=== PATIENT | male | born 2000 | race Caucasian/White ===

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

== ENCOUNTER → 2021-01-17 | Outpatient (CLI) | payer BC ==
[2021-01-17 23:13] LABS: Basophils # (A) 0.03 X 10*3/uL (0.00-0.10); Basophils % (A) 0.5 %; Eosinophils # (A) 0.43 X 10*3/uL (0.04-0.35); Eosinophils % (A) 7.1 %; HCT 41.3 % (39.6-50.0); HGB 13.6 g/dL (13.0-17.0); Lymphocytes # (A) 1.46 X 10*3/uL (0.90-5.00); MCH 30.1 pg (27.0-32.0); MCHC 32.9 g/dL (32.0-37.0); MCV 91.4 fL (80.0-97.0); Mean Platelet Volume 12.6 fL (9.5-12.2); Monocytes # (A) 0.37 X 10*3/uL (0.20-1.00); Monocytes % (A) 6.1 %; Neutrophils # (A) 3.79 X 10*3/uL (1.80-7.70); Neutrophils % (A) 62.1 %; Platelet Count 239 X 10*3/uL (140-440); RBC 4.52 X 10*6/uL (4.40-5.60); RDW 15.7 % (11.5-14.5); WBC 6.09 X 10*3/uL (4.50-10.00)
[2021-01-18 02:43] LABS: Erythrocyte Sedimentation Rate 5 mm/Hr (0-15)
[2021-01-18 03:22] LABS: ALT 14 U/L (10-49); AST 23 U/L (14-35); African American GFR (CKD) 150.1 (60.0-200.0); Albumin/Globulin Ratio 2.18 (1.60-3.17); Alkaline Phosphatase 63 U/L (41-126); C Reactive Protein <0.4 mg/dL (0.0-0.8); Calcium 9.8 mg/dL (8.7-10.3); Carbon Dioxide 27.2 mmol/L (21.6-31.8); Chloride 106 mmol/L (96-109); Globulin 2.2 g/dL (1.6-3.3); Glucose 72 mg/dL (70-110); Non-African American GFR(CKD) 129.5 (60.0-200.0); Potassium 3.7 mmol/L (3.5-5.5); Sodium 142 mmol/L (135-145); Total Bilirubin 0.4 mg/dL (0.3-1.2)
== END | disposition home or self-care (01) ==
LOC: LABWHC1 16:07
PROVIDERS: ATTEND Internal Medicine Gastroenterology
DX: K51.90 Ulcerative colitis, unspecified, without complications (principal)
CPT/HCPCS: 36415; 80053; 80145; 82397; 85025; 85652; 86140

== ENCOUNTER → 2021-03-28 | Outpatient (CLI) | payer BC ==
[2021-03-29 10:11] LABS: Basophils # (A) 0.03 X 10*3/uL (0.00-0.10); Basophils % (A) 0.6 %; Eosinophils # (A) 0.46 X 10*3/uL (0.04-0.35); Eosinophils % (A) 8.7 %; HCT 38.5 % (39.6-50.0); Lymphocytes # (A) 0.97 X 10*3/uL (0.90-5.00); Lymphocytes % (A) 18.4 %; MCH 32.8 pg (27.0-32.0); MCHC 33.8 g/dL (32.0-37.0); MCV 97.2 fL (80.0-97.0); Mean Platelet Volume 11.7 fL (9.5-12.2); Monocytes # (A) 0.45 X 10*3/uL (0.20-1.00); Monocytes % (A) 8.6 %; Neutrophils # (A) 3.34 X 10*3/uL (1.80-7.70); Neutrophils % (A) 63.5 %; Platelet Count 223 X 10*3/uL (140-440); RBC 3.96 X 10*6/uL (4.40-5.60); RDW 13.9 % (11.5-14.5); WBC 5.26 X 10*3/uL (4.50-10.00)
[2021-03-29 14:58] LABS: Erythrocyte Sedimentation Rate 10 mm/Hr (0-15)
[2021-03-29 19:33] LABS: African American GFR (CKD) 158.6 (60.0-200.0); Albumin 4.5 g/dL (3.80-4.90); Albumin/Globulin Ratio 1.8 (1.60-3.17); BUN/Creat Ratio 17.14 Ratio (12.00-20.00); C Reactive Protein 0.5 mg/dL (0.0-0.8); Calcium 9.4 mg/dL (8.7-10.3); Globulin 2.5 g/dL (1.6-3.3); Non-African American GFR(CKD) 136.8 (60.0-200.0); Potassium 4.4 mmol/L (3.5-5.5); Total Bilirubin 0.4 mg/dL (0.2-1.2)
== END | disposition home or self-care (01) ==
LOC: LABWHC1 15:40
PROVIDERS: ATTEND Internal Medicine Gastroenterology
DX: K51.90 Ulcerative colitis, unspecified, without complications (principal)
CPT/HCPCS: 36415; 80053; 85025; 85652; 86140

== ENCOUNTER → 2021-07-27 | Outpatient (CLI) | payer BC ==
[2021-07-27 23:22] LABS: Basophils # (A) 0.03 X 10*3/uL (0.00-0.10); Basophils % (A) 0.5 %; Eosinophils % (A) 6.1 %; HCT 39.4 % (39.6-50.0); HGB 13.3 g/dL (13.0-17.0); Lymphocytes # (A) 1.22 X 10*3/uL (0.90-5.00); Lymphocytes % (A) 18.5 %; MCH 32.3 pg (27.0-32.0); MCHC 33.8 g/dL (32.0-37.0); MCV 95.6 fL (80.0-97.0); Mean Platelet Volume 11.3 fL (9.5-12.2); Monocytes # (A) 0.46 X 10*3/uL (0.20-1.00); Neutrophils # (A) 4.46 X 10*3/uL (1.80-7.70); Neutrophils % (A) 67.6 %; Platelet Count 223 X 10*3/uL (140-440); RBC 4.12 X 10*6/uL (4.40-5.60); RDW 13.8 % (11.5-14.5); WBC 6.59 X 10*3/uL (4.50-10.00)
[2021-07-28 00:31] LABS: Erythrocyte Sedimentation Rate 6 mm/Hr (0-15)
[2021-07-28 16:06] LABS: ALT 14 U/L (10-49); AST 28 U/L (14-35); Albumin/Globulin Ratio 1.73 (1.60-3.17); Alkaline Phosphatase 60 U/L (41-126); BUN/Creat Ratio 13.75 Ratio (12.00-20.00); C Reactive Protein <0.4 mg/dL (0.0-0.8); Calcium 9.6 mg/dL (8.7-10.3); Carbon Dioxide 25.1 mmol/L (21.6-31.8); Chloride 106 mmol/L (96-109); Globulin 2.6 g/dL (1.6-3.3); Glucose 86 mg/dL (70-110); Non-African American GFR(CKD) 128.6 (60.0-200.0); Potassium 4.2 mmol/L (3.5-5.5); Sodium 142 mmol/L (135-145); Total Bilirubin 0.5 mg/dL (0.2-1.2); Total Protein 7.1 g/dL (6.2-8.2)
== END | disposition home or self-care (01) ==
LOC: LABWHC1 16:27
PROVIDERS: ATTEND Internal Medicine Gastroenterology
DX: K51.90 Ulcerative colitis, unspecified, without complications (principal)
CPT/HCPCS: 36415; 80053; 83993; 85025; 85652; 86140

== ENCOUNTER 2021-08-12 11:20 | Day surgery (SDC) | payer BC ==
[2021-08-10 12:04] VITALS: BMI 17.2
[~2021-08-12 11:20] MED LIST changes: -LIDOCAINE 1% 20 ML VIAL (10MG/ML) FOR IV START INTRADERMA PRN
[2021-08-12 11:57] VITALS: RESP 16; TEMP 98.2
[2021-08-12] MEDS ORDERED: LIDOCAINE 1% (10MG/ML) FOR IV START INTRADERMA ONE (12:02)
[2021-08-12] MEDS ORDERED: LIDOCAINE 1% INJ 10MG/ML (20 ML MDV) ONE (13:38)
[2021-08-12] MEDS ORDERED: PROPOFOL 10 MG/ML 20 ML VIAL IV ONE (13:38)
--- NOTE | 2021-08-12 14:00 | P.PCN ---
Date of Procedure: 08/12/21 Procedure(s) Performed: BRIEF HISTORY: Patient is a 21-year-old pleasant 8 male scheduled for an elective colonoscopy as a part of scheduled for colonoscopy.as a part of evaluation of ulcerative colitis that was diagnosed 2 years ago. He had a colonoscopy in August 2019 and was noted to have active proctosigmoiditis biopsy was consistent with inflammatory bowel disease, likely ulcerative colitis. The patient since has been maintained on oral mesalamine and the Humira injections for 1 year with no improvement in his symptoms. He was recently started on Imuran 100 mg daily as well as interview infusions every 8 weeks. Despite this he continues to remain symptomatic with 6-8 soft bowel movements daily with some any blood or mucus in the stool. He is scheduled for a colonoscopy to assess the degree and severity of inflammatory bowel disease. PROCEDURE PERFORMED: Colonoscopy with biopsy. PREOPERATIVE DIAGNOSIS: History of ulcerative colitis diagnosed in August 2019, continues to have persistent symptoms with diarrhea and bleeding. IV sedation per Anesthesia. PROCEDURE: After informed consent was obtained, the patient, was brought into the endoscopy unit. IV sedation was administered by Anesthesia under continuous monitoring. Digital rectal examination was normal. Initially the Olympus CF-160 flexible video colonoscope was then inserted in the rectum, gradually advanced into the cecum without any difficulty. Careful examination was performed as the scope was gradually being withdrawn. Ileocecal valve and the appendiceal orifice were visualized and appeared normal. Prep was excellent. Terminal ileum was intubated and 20 cm resected appeared normal. Mucosa of the cecum, ascending colon, transverse colon, descending colon, appeared entirely normal. There was mild erythema and edema with loss of haustrations , scattered pseudopolyps in the rectum and the sigmoid colon up to 30 cm from the anal verge consistent with mildly active colitis. Retroflexion was performed in the rectum and no lesions were seen. The patient tolerated the procedure well. IMPRESSION: Mildly active proctosigmoiditis with mucosal erythema, scattered pseudopolyps, loss of haustrations involving the rectum and distal sigmoid colon up to 30 cm from the anal verge consistent with inflammatory bowel disease/ulcerative colitis Rest of the colon and terminal ileum appeared normal RECOMMENDATIONS: Findings of this examination were discussed with the patient as well as his family. He was advised to follow with the biopsy results and he'll be seen in office in 2 weeks. In the meantime he will continue with antibiotic infusions as well as Imuran 100 mg daily.
[2021-08-12 14:20] VITALS: BP 112/69; PULSE 89
== END 2021-08-12 14:45 | disposition home or self-care (01) ==
LOC: ORWHC2ENDO 11:20
PROVIDERS: ATTEND Internal Medicine Gastroenterology
DX: K51.90 Ulcerative colitis, unspecified, without complications (principal); K63.89 Other specified diseases of intestine; K21.9 Gastro-esophageal reflux disease without esophagitis; Z79.899 Other long term (current) drug therapy
CPT/HCPCS: 45380; 88305; J2001; J2704

== ENCOUNTER → 2023-02-14 | Outpatient (CLI) | payer BC ==
[2023-02-14 08:38] LABS: Basophils % (A) 0 %; Eosinophils # (A) 0.3 k/uL (0-0.7); Eosinophils % (A) 6 %; HCT 41.1 % (39.0-53.0); HGB 14.5 gm/dL (13.0-17.5); Lymphocytes # (A) 1.6 k/uL (1.0-4.8); Lymphocytes % (A) 29 %; MCH 31.4 pg (25.0-35.0); MCHC 35.2 g/dL (31.0-37.0); MCV 89.3 fL (80.0-100.0); Mean Platelet Volume 7.8; Monocytes # (A) 0.2 k/uL (0-1.0); Monocytes % (A) 4 %; Neutrophils # (A) 3.1 k/uL (1.3-7.7); Neutrophils % (A) 59 %; Platelet Count 213 k/uL (150-450); RDW 14.3 % (11.5-15.5); WBC 5.3 k/uL (3.8-10.6)
[2023-02-14 13:38] LABS: Erythrocyte Sedimentation Rate 3 mm/hr (0-15)
[2023-02-14 15:59] LABS: ALT 19 U/L (10-49); AST 24 U/L (14-35); Albumin 4.7 g/dL (3.8-4.9); Albumin/Globulin Ratio 1.88 (1.60-3.17); Alkaline Phosphatase 50 U/L (41-126); BUN/Creat Ratio 15.67 Ratio (12.00-20.00); Blood Urea Nitrogen 14.1 mg/dL (9.0-27.0); C Reactive Protein <0.30 mg/dL (0.00-0.80); Calcium 9.7 mg/dL (8.7-10.3); Carbon Dioxide 25.3 mmol/L (20.0-27.5); Chloride 104 mmol/L (96-109); Globulin 2.5 g/dL (1.6-3.3); Glucose 87 mg/dL (70-110); Non-African American GFR(CKD) 121.7 (60.0-200.0); Potassium 3.9 mmol/L (3.5-5.5); Sodium 140 mmol/L (135-145); Total Protein 7.2 g/dL (6.2-8.2)
== END | disposition home or self-care (01) ==
LOC: LABWHC1 07:18
PROVIDERS: ATTEND Internal Medicine Gastroenterology
DX: K51.90 Ulcerative colitis, unspecified, without complications (principal)
CPT/HCPCS: 36415; 80053; 85025; 85652; 86140

== ENCOUNTER → 2023-03-22 | Outpatient (CLI) | payer BC ==
[2023-03-22 20:55] LABS: HCT 42.8 % (39.6-50.0); HGB 14.2 g/dL (13.0-17.0); MCH 30.9 pg (27.0-32.0); MCHC 33.2 g/dL (32.0-37.0); Mean Platelet Volume 11.3 fL (9.5-12.2); NRBC Per 100 WBC 0 /100 WBCS (0.0-0.0); Platelet Count 251 X 10*3/uL (140-440); RDW 13.5 % (11.5-14.5); WBC 6.35 X 10*3/uL (4.50-10.00)
[2023-03-22 21:34] LABS: Thyroid Peroxidase Antibodies <9.0 U/mL (0.0-33.0)
[2023-03-22 21:42] LABS: Prolactin 8.2 ng/mL (2.100-17.700); T4, Free (Free Thyroxine) 1.37 ng/dL (0.800-1.800)
== END | disposition home or self-care (01) ==
LOC: LABWHC1 14:25
PROVIDERS: ATTEND Internal Medicine Endocrinology, Diabetes & Metabolism
DX: R53.83 Other fatigue (principal)
CPT/HCPCS: 36415; 82024; 82533; 82607; 84146; 84403; 84439; 84443; 84481; 85027; 86376

== ENCOUNTER → 2023-04-23 | Outpatient (CLI) | payer BC ==
[2023-04-24 11:08] LABS: Thyroid Stim Immun Quant <0.10 IU/L (<0.10)
[2023-04-24 20:45] LABS: T4, Free (Free Thyroxine) 1.45 ng/dL (0.80-1.80)
[2023-04-24 22:26] LABS: Thyroid Peroxidase Antibodies <9.0 U/mL (0.0-33.0)
== END | disposition home or self-care (01) ==
LOC: LABWHC1 16:12
PROVIDERS: ATTEND Internal Medicine Endocrinology, Diabetes & Metabolism
DX: R53.83 Other fatigue (principal); R63.4 Abnormal weight loss
CPT/HCPCS: 36415; 83520; 84305; 84403; 84439; 84443; 84445; 84480; 86376

== ENCOUNTER → 2023-12-07 | Outpatient (CLI) | payer BC ==
[2023-12-07 16:11] LABS: Basophils # (A) 0.03 X 10*3/uL (0.00-0.10); Basophils % (A) 0.4 %; Eosinophils # (A) 0.56 X 10*3/uL (0.04-0.35); Eosinophils % (A) 6.7 %; HCT 45.5 % (39.6-50.0); HGB 15.3 g/dL (13.0-17.0); Lymphocytes % (A) 27.5 %; MCH 30.1 pg (27.0-32.0); MCHC 33.6 g/dL (32.0-37.0); MCV 89.4 FL (80.0-97.0); Mean Platelet Volume 11.5 FL (9.5-12.2); Monocytes # (A) 0.59 X 10*3/uL (0.20-1.00); Monocytes % (A) 7.1 %; NRBC Per 100 WBC 0 X 10*3/uL (0.00-0.01); Neutrophils # (A) 4.85 X 10*3/uL (1.80-7.70); Neutrophils % (A) 58.1 %; Platelet Count 237 X 10*3/uL (140-440); RBC 5.09 X 10*6/uL (4.40-5.60); WBC 8.35 X 10*3/uL (4.50-10.00)
[2023-12-07 16:22] LABS: Erythrocyte Sedimentation Rate 1 mm/Hr (0-15)
[2023-12-07 16:41] LABS: ALT 15 U/L (10-49); AST 19 U/L (14-35); Albumin 4.6 g/dL (3.8-4.9); Albumin/Globulin Ratio 1.84 Ratio (1.60-3.17); Alkaline Phosphatase 57 U/L (41-126); BUN/Creat Ratio 25.67 Ratio (12.00-20.00); Blood Urea Nitrogen 23.1 mg/dL (9.0-27.0); C Reactive Protein <0.30 mg/dL (0.00-0.80); Carbon Dioxide 25.9 mmol/L (21.6-31.8); Chloride 103 mmol/L (96-109); Globulin 2.5 g/dL (1.6-3.3); Glucose 88 mg/dL (70-110); Potassium 4.3 mmol/L (3.5-5.5); Sodium 140 mmol/L (135-145); Total Bilirubin 0.3 mg/dL (0.3-1.2); Total Protein 7.1 g/dL (6.2-8.2)
== END | disposition home or self-care (01) ==
LOC: LABWHC1 07:15
PROVIDERS: ATTEND Internal Medicine Gastroenterology
DX: K51.90 Ulcerative colitis, unspecified, without complications (principal)
CPT/HCPCS: 36415; 80053; 85025; 85652; 86140; 86480

== ENCOUNTER → 2025-01-16 | Outpatient (CLI) | payer OTHER ==
[2025-01-16 18:07] LABS: Basophils # (A) 0.03 X 10*3/uL (0.00-0.10); Basophils % (A) 0.4 %; Eosinophils # (A) 0.33 X 10*3/uL (0.04-0.35); Eosinophils % (A) 4.7 %; HCT 42.6 % (39.6-50.0); HGB 14.2 g/dL (13.0-17.0); Lymphocytes # (A) 1.92 X 10*3/uL (0.90-5.00); Lymphocytes % (A) 27.2 %; MCH 29.3 pg (27.0-32.0); MCHC 33.3 g/dL (32.0-37.0); Mean Platelet Volume 11.3 FL (9.5-12.2); Monocytes # (A) 0.47 X 10*3/uL (0.20-1.00); Monocytes % (A) 6.7 %; NRBC Per 100 WBC 0 X 10*3/uL (0.00-0.01); Neutrophils # (A) 4.29 X 10*3/uL (1.80-7.70); Neutrophils % (A) 60.7 %; Platelet Count 258 X 10*3/uL (140-440); RBC 4.84 X 10*6/uL (4.40-5.60); RDW 13.2 % (11.5-14.5); WBC 7.06 X 10*3/uL (4.50-10.00)
[2025-01-16 18:19] LABS: Erythrocyte Sedimentation Rate 7 mm/Hr (0-15)
[2025-01-16 18:44] LABS: ALT 20 U/L (10-49); AST 27 U/L (14-35); Albumin 4.4 g/dL (3.8-4.9); Albumin/Globulin Ratio 1.69 Ratio (1.60-3.17); Alkaline Phosphatase 57 U/L (41-126); BUN/Creat Ratio 16.18 Ratio (12.00-20.00); Blood Urea Nitrogen 17.8 mg/dL (9.0-27.0); Calcium 9.7 mg/dL (8.7-10.3); Carbon Dioxide 25.4 mmol/L (21.6-31.8); Chloride 106 mmol/L (96-109); Globulin 2.6 g/dL (1.6-3.3); Glucose 108 mg/dL (70-110); Potassium 4.2 mmol/L (3.5-5.5); Sodium 143 mmol/L (135-145); Total Bilirubin 0.5 mg/dL (0.3-1.2)
== END | disposition home or self-care (01) ==
LOC: LABWHC1 14:13
PROVIDERS: ATTEND Internal Medicine Gastroenterology
DX: K51.90 Ulcerative colitis, unspecified, without complications (principal)
CPT/HCPCS: 36415; 80053; 85025; 85652; 86140

== ENCOUNTER 2025-02-06 12:47 | Day surgery (SDC) | payer OTHER ==
[~2025-02-06 12:47] MED LIST changes: -LACTATED RINGERS 1,000 ML IV SCH; +LIDOCAINE 1% (10MG/ML) FOR IV START INTRADERMA PRN
[2025-02-06] MEDS: IV FLUID CONTINUATION 1,000 ML IV ONE (14:40)
[2025-02-06] MEDS: LACTATED RINGERS 1,000 ML IV SCH (14:41)
[2025-02-06] MEDS ORDERED: PROPOFOL 10 MG/ML 20 ML VIAL IV ONE (15:19)
--- NOTE | 2025-02-06 15:41 | P.PCN ---
Date of Procedure: 02/06/25 Procedure(s) Performed: BRIEF HISTORY: Patient is a 24-year-old pleasant white male scheduled for an elective colonoscopy as a part of evaluation of rectal bleeding and diarrhea. He was diagnosed with ulcerative colitis in August 2019. Currently maintained on Stelara injections every 8 weeks and Imuran 100 mg daily. He still has 4-5 loose watery bowel movements with blood and mucus in the stool. PROCEDURE PERFORMED: Colonoscopy with biopsy. PREOPERATIVE DIAGNOSIS: History of ulcerative colitis/intermittent rectal bleeding and diarrhea. IV sedation per Anesthesia. PROCEDURE: After informed consent was obtained, the patient, was brought into the endoscopy unit. IV sedation was administered by Anesthesia under continuous monitoring. Digital rectal examination was normal. Initially the Olympus CF-160 flexible video colonoscope was then inserted in the rectum, gradually advanced into the cecum without any difficulty. Careful examination was performed as the scope was gradually being withdrawn. Ileocecal valve and the appendiceal orifice were visualized and appeared normal. Prep was excellent. Terminal ileum was intubated and 10 cm visualized appeared normal. Mucosa of the cecum, ascending colon, transverse colon, descending colon, sigmoid colon, appeared normal. There was active colitis involving the distal sigmoid colon as well as the rectum with mucosal erythema friability granularity spontaneous oozing exudates and pseudopolyps and multiple biopsies were done from this area. Retroflexion was performed in the rectum and no lesions were seen. The patient tolerated the procedure well. IMPRESSION: Active colitis Active colitis involving the sigmoid and rectum up to 30 cm from anal verge with mucosal erythema, friability and pseudopolyps status post multiple biopsies Rest of the colon appeared normal RECOMMENDATIONS: Findings of this examination were discussed with the patient as well as his family. He was advised to follow-up with the biopsy results. He will be seen in the office in 2 to 3 weeks. Will plan on increasing the Stelara to every 4 weeks because of active colitis..
[2025-02-06 15:52] VITALS: TEMP 98
--- NOTE | 2025-02-06 16:11 | XR ---
EXAMINATION TYPE: XR chest 1V portable DATE OF EXAM: 02/06/2025 CLINICAL INDICATION: Male, 24 years old with history of ? ASPIRATION, SOB. TECHNIQUE: Single frontal view of the chest is obtained. COMPARISON: None FINDINGS: Reticular increased markings in the mid to lower lungs bilaterally. There is no suspicious peripheral focal air space opacity, pleural effusion, or pneumothorax seen. T he cardiac silhouette size is within normal limits. The osseous structures are intact. IMPRESSION: No suspicious acute focal infiltrate. [facility], , 02/06/2025 4:08 PM
[2025-02-06 16:17] VITALS: RESP 16
[2025-02-06 16:37] VITALS: BP 141/80; PULSE 89
== END 2025-02-06 16:48 | disposition home or self-care (01) ==
LOC: ORWHC2ENDO 12:47
PROVIDERS: ATTEND Internal Medicine Gastroenterology
DX: K51.311 Ulcerative (chronic) rectosigmoiditis with rectal bleeding (principal); K21.9 Gastro-esophageal reflux disease without esophagitis; Z79.620 Long term (current) use of immunosuppressive biologic; Z79.69 Long term (current) use of other immunomodulators and immunosuppressants; Z79.899 Other long term (current) drug therapy
CPT/HCPCS: 45380; 88305; 71045; J2704